=== PATIENT | male | born 1960 | race Two or more races ===

== ENCOUNTER 2022-08-30 05:15 | Inpatient (IN) | payer MEDICAID ==
[2022-08-25 14:02] LABS: BASOPHILS # (AUTO) 0.1 X10'3 (0-0.2); BASOPHILS % (AUTO) 0.7 % (0-1); EOSINOPHILS # (AUTO) 0.3 X10'3 (0-0.9); EOSINOPHILS % (AUTO) 3.7 % (0-6); LYMPHOCYTES # (AUTO) 2.7 X10'3 (1.1-4.8); MEAN CORPUSCULAR HEMOGLOBIN 30.2 PG (27.0-31.0); MEAN CORPUSCULAR VOLUME 91.4 FL (78-98); MEAN PLATELET VOLUME 7.3 FL (7.4-10.4); MONOCYTES # (AUTO) 1.1 X10'3 (0-0.9); MONOCYTES % (AUTO) 14.5 % (2-12); NEUTROPHILS # (AUTO) 3.3 X10'3 (1.8-7.7); NEUTROPHILS % (AUTO) 45.1 % (42-75); PRE OP HEMATOCRIT 49.7 % (42.0-52.0); PRE OP HEMOGLOBIN 16.4 g/dL (14.0-17.9); PRE OP PLATELET COUNT 283 X10'3 (140-440); RED BLOOD COUNT 5.44 X10'6 (4.70-6.10); RED CELL DISTRIBUTION WIDTH 14.6 % (11.5-14.5)
[2022-08-25 14:23] LABS: ALBUMIN 3.8 G/DL (3.4-5.0); ALKALINE PHOSPHATASE 86 IU/L (46-116); BLOOD UREA NITROGEN 13 MG/DL (7-18); BUN/CREATININE RATIO 16.3 (5.4-32.0); CALCIUM 8.6 MG/DL (8.5-10.1); CHLORIDE 105 MMOL/L (99-107); PRE OP ALT 26 U/L (30-65); PRE OP ANION GAP 7 (8-16); PRE OP AST 26 U/L (10-37); PRE OP BILIRUB, TOTAL 0.7 MG/DL (0.0-1.0); PRE OP GLUCOSE 99 MG/DL (70-104); PRE OP POTASSIUM 4.1 MMOL/L (3.4-5.1); PRE OP SODIUM 141 MMOL/L (135-145); TOTAL CARBON DIOXIDE 29.3 MMOL/L (24-32); TOTAL PROTEIN 7.8 G/DL (6.4-8.2); eGFR > 90 ML/MIN
[2022-08-30] VITALS (25 sets, daily range): BP systolic 118–143; BP diastolic 72–95
[~2022-08-30] VITALS: Ht 165.1 cm; Wt 91.6 kg
[~2022-08-30 05:15] MED LIST: ALLO100T25 PO; FERR-39 PO; LOSA50TA3 PO; ROSU20TA2 PO; ringers solution, lacted 1,000 ML IV SCH
[2022-08-30] MEDS ORDERED: famotidine 20mg tablet PO ONE (05:30)
[2022-08-30] MEDS ORDERED: ceFAZolin inj. 2,000 MG in dextrose 5%-water 100 ML IV ONE (05:30)
[2022-08-30] MEDS ORDERED: BUPIVAcaine 0.5% inj/PF 30 ML ONE (06:48)
[2022-08-30] MEDS ORDERED: LIDOcaine 1% 30ml preserv. free vial ONE (06:48)
[2022-08-30] MEDS ORDERED: ondansetron/PF 4mg/2ml inj IV PRN ×2 (07:15→12:45)
[2022-08-30] MEDS ORDERED: hydrALAZINE 20mg/ml inj. IV PRN (07:15)
[2022-08-30] MEDS ORDERED: fentaNYL/PF 50MCG/1 ML 2ML syringe IV PRN ×2 (07:15)
[2022-08-30] MEDS ORDERED: ringers solution, lacted 1,000 ML IV SCH (07:15)
[2022-08-30] MEDS ORDERED: labetalol 20mg/4ml (5mg/ml) syringe IV PRN (07:15)
[2022-08-30] MEDS ORDERED: morphine 2 MG/ML inj. syringe IV PRN (07:15)
[2022-08-30] MEDS ORDERED: morphine 4 MG/ML inj SYRINge IV PRN (07:15)
[2022-08-30] MEDS ORDERED: midazolam 1 mg/ML 2ml injection ONE (07:16)
[2022-08-30] MEDS ORDERED: fentaNYL/PF 50MCG/1 ML 2ML syringe ONE ×2 (07:16→10:11)
[2022-08-30] MEDS ORDERED: LIDOcaine 1%/PF 5ML 10 MG/ML VIAL ONE (07:18)
[2022-08-30] MEDS ORDERED: propofol inj 20 ML IV ONE (07:18)
[2022-08-30] MEDS ORDERED: ondansetron/PF 4mg/2ml inj ONE (07:19)
[2022-08-30] MEDS ORDERED: rocuronium 10mg/ml inj IV ONE ×3 (07:19→09:44)
[2022-08-30] MEDS ORDERED: dexamethasone sod phosphate 4mg/ml inj. ONE (07:19)
[2022-08-30] MEDS ORDERED: neostigmine methylsulfate 1 MG/ML 10ml vial ONE (07:19)
[2022-08-30] MEDS ORDERED: glycopyrrolate 0.2mg/ml inj ONE (07:19)
[2022-08-30] MEDS ORDERED: sevoflurane 250ml liquid IH ONE (07:33)
[2022-08-30] MEDS ORDERED: BUPIVAcaine 0.5% inj/PF 30 ml vial IJ ONE (08:33)
[2022-08-30] MEDS ORDERED: sugammadex 200mg/2ml injection IV ONE (10:33)
[2022-08-30] MEDS ORDERED: INDOCYANINE GREEN 25 MG/10 ML VIAL IV ONE (10:56)
[2022-08-30] MEDS ORDERED: albumin (Human) 5% 250ml 250 ML IV ONE (11:25)
[2022-08-30] MEDS ORDERED: morphine 10mg/ml inj. ONE (11:35)
--- NOTE | 2022-08-30 12:43 | NUR ---
Received from OR via HOSPITAL BED, accompanied by Anesthesiologist DR SCHMIDT and report given by Anesthesiolgist. PT IS GROGGY BUT RESPONDS TO VERBAL STIMULI. PT PLACED ON BEDSIDE MONITOR, VSS. PT IS ST WITH RATE IN LOW 100'S. PT RECEIVING 8L O2 TO MASK AND TOLERATING WELL WITH O2 SAT >96%. WILL TITRATE DOWN PT TOLERATES. PT HAS 20G PIV TO LEFT HAND WITH LR INFUSING ORDERED. PT HAS 4 LAP SITES ACROSS UPPER AND WITH DERMABOND THAT ARE ALL CDI. PT IS RESTING WITH NO S/S OF DISTRESS/DISCOMFORT NOTED AT THIS TIME. WILL CONTINUE TO ASSESS.
[2022-08-30] MEDS ORDERED: morphine/NS PCA 1mg/ml 50ml 50 ML IV SCH (12:45)
[2022-08-30] MEDS ORDERED: naloxone 0.4 mg/ml inj IV PRN (12:45)
--- NOTE | 2022-08-30 14:20 | NUR ---
PT MOVED OVER TO NEW BED D/T HEAD OF BED NOT STAYING UP ON PREVIOUS BED. ENGINEERING CALLED AND SAID THEY WOULD COME GET THE BED FOR REPAIR.
[2022-08-30] MEDS: morphine/NS PCA 1mg/ml 50ml 50 ML IV SCH ×5 (14:38→23:00)
--- NOTE | 2022-08-30 15:09 | NUR ---
REPORT GIVEN TO RAMÓN MUELLER AND ALL QUESTIONS ANSWERED. PATIENT TRANSFERRED TO SURGICAL FLOOR. LABELED BELONGINGS PRESENT AND DELIVERED TO ROOM. RN PRESENT ALL CRITERIA FOR TRANSFER BACK TO THE FLOOR HAS BEEN ACHIEVED. VSS. PAIN AT A TOLERABLE LEVEL. BED LOW, CALL LIGHT PRESENT AND 2 RAILS DOWN. RN AWARE THAT PATIENT HAS ARRIVED. TO ACCEPT CARE OF PATIENT.
[2022-08-30] MEDS: ceFAZolin inj. 1,000 MG in dextrose 5%-water 50ml 50 ML IV SCH (18:06)
[2022-08-30] MEDS: albuterol 2.5 MG/3 ML nebule NEB SCH (19:00)
[2022-08-30] MEDS: docusate sod 100mg capsule PO SCH (21:01)
[2022-08-30] MEDS: sennosides/docusate sodium tablet PO SCH (21:02)
[2022-08-30] MEDS: normal saline 1000ml 1,000 ML IV SCH (21:04)
--- NOTE | 2022-08-30 22:08 | NUR ---
Student Medication Administration: For this medication-pass time frame, all medication were reviewed, dispensed, administered and documented per hospital policy by SEKOU [facility].
--- NOTE | 2022-08-30 23:32 | NUR ---
Student documentation: I have reviewed interventions, assessments performed and documented by Roderick SAPP [facility].
[2022-08-31] MEDS: morphine/NS PCA 1mg/ml 50ml 50 ML IV SCH ×7 (00:36→13:00)
[2022-08-31] MEDS: ceFAZolin inj. 1,000 MG in dextrose 5%-water 50ml 50 ML IV SCH ×2 (01:08→09:06)
[2022-08-31 02:00] VITALS: BP 121/67
--- NOTE | 2022-08-31 04:00 | NUR ---
ATTEMPTED TO AMBULATE PT AND PATIENT OXYGEN SATURATION WENT DOWN INTO THE HIGH 70'S GOT HIM BACK IN BED AND HAD TO BUMP HIS O2 UP TO 6L TO GET HIM AT 92-93. WENT BACK IN AND RECHECKED HIM AND HIS O2 WAS AT 97% TITRATED HIM DOWN TO 4L AND HE WAS AT 94%. PATIENT DOES NOT NORMALLY REQUIRE O2 AT HOME. PATIENT VITALS STABLE. PAIN IS CONTROLLED AT 5/10
--- NOTE | 2022-08-31 05:13 | NUR ---
PATIENT'S CADD HAD TO HAVE NEW TUBING PLACED AND PRIMED. CHARGE JEANNETTE PRESENT AT BEDSIDE AND CHANGED OUT CONTAMINATED TUBING. PATIENT'S TOTAL OF MORPHINE WILL BE OFF DUE TO THE WASTED PORTION IN THE TUBING AND THE PRIMING OF THE LINE.
[2022-08-31 06:27] LABS: BASOPHILS % (AUTO) 0.2 % (0-1); EOSINOPHILS % (AUTO) 0 % (0-6); HEMATOCRIT 39.9 % (42.0-52.0); HEMOGLOBIN 13.3 g/dl (14.0-17.9); LYMPHOCYTES # (AUTO) 1.7 X10'3 (1.1-4.8); LYMPHOCYTES % (AUTO) 16.3 % (21-51); MEAN CORPUSCULAR HEMOGLOBIN 30.6 PG (27.0-31.0); MEAN CORPUSCULAR HGB CONC 33.4 g/dL (33.0-36.5); MEAN CORPUSCULAR VOLUME 91.6 FL (78-98); MEAN PLATELET VOLUME 7.5 FL (7.4-10.4); MONOCYTES # (AUTO) 1.3 X10'3 (0-0.9); MONOCYTES % (AUTO) 12.2 % (2-12); NEUTROPHILS # (AUTO) 7.4 X10'3 (1.8-7.7); NEUTROPHILS % (AUTO) 71.3 % (42-75); PLATELET COUNT 264 X10'3 (140-440); RED BLOOD COUNT 4.35 X10'6 (4.70-6.10); RED CELL DISTRIBUTION WIDTH 14.3 % (11.5-14.5); WHITE BLOOD COUNT 10.3 X10'3 (4.5-11.0)
--- NOTE | 2022-08-31 06:34 | NUR ---
Problems reprioritized. Patient report given, questions answered & plan of care reviewed with AMI FIELDS.
[2022-08-31 06:49] LABS: ALBUMIN 3.4 G/DL (3.4-5.0); ANION GAP 11 (8-16); BLOOD UREA NITROGEN 13 MG/DL (7-18); BUN/CREATININE RATIO 13.7 (5.4-32.0); CALCIUM 8.1 MG/DL (8.5-10.1); CHLORIDE 105 MMOL/L (99-107); CREATININE 0.95 MG/DL (0.60-1.10); GLUCOSE 153 MG/DL (70-104); POTASSIUM 4.2 MMOL/L (3.5-5.1); SODIUM 142 MMOL/L (135-145); TOTAL CARBON DIOXIDE 26.1 MMOL/L (24-32); eGFR 80 ML/MIN
--- NOTE | 2022-08-31 07:55 | NUR ---
received report from night nurse. Assumed care of patient. All safety measures in place and call light in reach. Will continue to monitor.
[2022-08-31] MEDS: sennosides/docusate sodium tablet PO SCH ×2 (08:57→20:00)
[2022-08-31] MEDS: losartan 50mg tablet PO SCH (08:58)
[2022-08-31] MEDS: docusate sod 100mg capsule PO SCH ×2 (08:58→20:00)
[2022-08-31] MEDS: enoxaparin 40mg/0.4ml syringe SQ SCH (09:00)
[2022-08-31] MEDS: albuterol 2.5 MG/3 ML nebule NEB SCH ×4 (09:09→19:42)
[2022-08-31] MEDS: normal saline 1000ml 1,000 ML IV SCH (09:11)
[2022-08-31 09:45] VITALS: BP 130/76
[2022-08-31 11:00] VITALS: BP_SYST 141; BP_SYST 145; BP_SYST 147; BP_DIAS 78; BP_DIAS 83; BP_DIAS 85
[2022-08-31] MEDS ORDERED: PCA WASTE DOCUMENTATION 1 MG ML MC SCH (11:00)
--- NOTE | 2022-08-31 11:09 | NUR ---
Russell Scott 350B - Pt tachy 110s at rest increased 120-130 w/exertion. 02 drop 88 w/exertion current BP 143/81 -Mala S. [employer] [id number]
[2022-08-31] MEDS ORDERED: LORazepam 2 mg/ml vial IV ONE (13:20)
[2022-08-31] MEDS ORDERED: acetaminophen 325mg/10.15ml oral unit dose solution PO PRN (13:40)
--- NOTE | 2022-08-31 17:54 | NUR ---
PAGER ID: [phone] MESSAGE: Americo Goodson#[phone]- Dr. Michael would like to a consult for 350B, Please. Thank you. Alanis Michael
[2022-08-31 18:00] VITALS: BP 144/87
--- NOTE | 2022-08-31 18:53 | NUR ---
Physical Assessment by Yuly SALAZAR Reviewed. Addendum: 08/31/22 at 1854 by Alanis Joy RN Amended: Links added.
--- NOTE | 2022-08-31 18:54 | NUR ---
Problems reprioritized. Patient report given, questions answered & plan of care reviewed with Gabriella MUELLER.
[2022-08-31] MEDS ORDERED: metoprolol tartrate 1mg/ml inj IV PRN (20:25)
[2022-08-31 22:00] VITALS: BP_SYST 135; BP_SYST 138; BP_DIAS 78
[2022-08-31] MEDS ORDERED: potassium Cl 40MEQ/1/2NS 520ml 520 ML IV PRN (22:25)
[2022-08-31] MEDS ORDERED: magnesium 4gm in 100ml NS 100 ML IV PRN (22:25)
[2022-08-31] MEDS ORDERED: potassium Cl 20 mEq SR tablet PO PRN ×2 (22:25)
[2022-08-31] MEDS ORDERED: magnesium Cl slow-release 64mg tablet PO PRN (22:25)
[2022-08-31] MEDS ORDERED: cloNIDine 0.2 MG/24 HR patch (7 day patch) TD ONE (22:30)
[2022-08-31] MEDS ORDERED: ipratropium/albuterol 3ml nebule NEB SCH (23:00)
[2022-08-31] MEDS: ringers solution, lacted 1,000 ML IV SCH (23:00)
--- NOTE | 2022-09-01 02:44 | NUR ---
Pt. is awake alert oriented speaks Mozambican understands some Yi. No c/o pain or distress. States wants to go home. Advised to remain in bed until seen by the DrMagnolia in the am. NGT to LIS large amt dark reddish brown drainage. Pt. able to use bedside urinal with minimal assistance yellow clear urine. IV infusing. Will continue to monitor.
[2022-09-01] MEDS: ipratropium/albuterol 3ml nebule NEB SCH ×2 (02:45→08:23)
[2022-09-01] MEDS: ringers solution, lacted 1,000 ML IV SCH ×2 (03:36→10:57)
[2022-09-01 07:00] VITALS: BP 148/78
--- NOTE | 2022-09-01 07:15 | NUR ---
Message: [id number] Ashleigh Goodson: patient complaining of pain in back of throat from NG. can I get some chloraseptic spray? he's wanting to pull the NG and leave. jake, angelique [id number] Transaction number: [id number]
[2022-09-01] MEDS ORDERED: K and/or MAG REPLACEMENT MC SCH (08:00)
[2022-09-01] MEDS: sennosides/docusate sodium tablet PO SCH (08:07)
[2022-09-01] MEDS: docusate sod 100mg capsule PO SCH (08:07)
[2022-09-01] MEDS: losartan 50mg tablet PO SCH (08:07)
[2022-09-01] MEDS: enoxaparin 40mg/0.4ml syringe SQ SCH (08:08)
[2022-09-01] MEDS ORDERED: LORazepam 2 mg/ml vial IV PRN (10:30)
[2022-09-01] MEDS: normal saline 1000ml 1,000 ML IV SCH (10:37)
[2022-09-01 11:09] VITALS: BP 140/84
[2022-09-01] MEDS ORDERED: metoprolol tartrate 50mg tablet PO SCH (12:10)
--- NOTE | 2022-09-01 12:15 | NUR ---
called lab multiple times this AM regarding missing labs. finally pending now.
[2022-09-01 12:25] LABS: BASOPHILS % (AUTO) 0.2 % (0-1); EOSINOPHILS % (AUTO) 0 % (0-6); HEMATOCRIT 39.8 % (42.0-52.0); HEMOGLOBIN 12.9 g/dl (14.0-17.9); LYMPHOCYTES # (AUTO) 1.2 X10'3 (1.1-4.8); LYMPHOCYTES % (AUTO) 7.8 % (21-51); MEAN CORPUSCULAR HEMOGLOBIN 29.7 PG (27.0-31.0); MEAN CORPUSCULAR HGB CONC 32.3 g/dL (33.0-36.5); MEAN CORPUSCULAR VOLUME 91.8 FL (78-98); MEAN PLATELET VOLUME 7.8 FL (7.4-10.4); MONOCYTES # (AUTO) 1.4 X10'3 (0-0.9); MONOCYTES % (AUTO) 9.5 % (2-12); NEUTROPHILS # (AUTO) 12.5 X10'3 (1.8-7.7); NEUTROPHILS % (AUTO) 82.5 % (42-75); PLATELET COUNT 238 X10'3 (140-440); RED BLOOD COUNT 4.34 X10'6 (4.70-6.10); RED CELL DISTRIBUTION WIDTH 14.2 % (11.5-14.5); WHITE BLOOD COUNT 15.2 X10'3 (4.5-11.0)
[2022-09-01 12:28] LABS: ALANINE AMINOTRANSFERASE 32 U/L (12-78); ALBUMIN 3.3 G/DL (3.4-5.0); ALBUMIN/GLOBULIN RATIO 0.9 (1.1-1.5); ALKALINE PHOSPHATASE 65 IU/L (46-116); ANION GAP 3 (8-16); ASPARTATE AMINO TRANSFERASE 49 U/L (10-37); BILIRUBIN,TOTAL 0.9 MG/DL (0.1-1.0); BLOOD UREA NITROGEN 8 MG/DL (7-18); CALCIUM 8.6 MG/DL (8.5-10.1); CHLORIDE 104 MMOL/L (99-107); GLUCOSE 137 MG/DL (70-104); MAGNESIUM 2.2 MG/DL (1.5-2.4); PHOSPHORUS 2.1 MG/DL (2.3-4.5); POTASSIUM 3.9 MMOL/L (3.5-5.1); SODIUM 139 MMOL/L (135-145); TOTAL CARBON DIOXIDE 31.8 MMOL/L (24-32); TOTAL PROTEIN 6.8 G/DL (6.4-8.2); eGFR > 90 ML/MIN
--- NOTE | 2022-09-01 12:30 | NUR ---
Dr. [place] at bedside. Explaining the dangers and consequences of leaving AMA.
--- NOTE | 2022-09-01 12:40 | NUR ---
T/C to Dr. Michael explained patient is insisting to leave AMA. some instructions given to relay to patient.
[2022-09-01 12:46] VITALS: BP_SYST 140
--- NOTE | 2022-09-01 13:00 | NUR ---
Patient insisting on leaving AMA. IV and monitor and storage bin tender removed. Post-op instructions and follow up directions given and reviewed with patient. Family at bedside all verbalized understanding of the complications that can occur with leaving AMA.
--- NOTE | 2022-09-01 14:10 | NUR ---
Message: [phone] Ashleigh Goodson: MECHELLE... patient left AMA. Dr. Alec fernandez. thanksangelique [id number] Transaction number: [id number]
== END 2022-09-01 13:05 | disposition left against medical advice (07) | DRG 220 ==
LOC: PAS IN 05:15 → SUR 3N 15:14
PROVIDERS: ADMIT Surgery; ATTEND Surgery
PROC: 0BUT4JZ Supplement Diaphragm with Synthetic Substitute, Percutaneous Endoscopic Approach (ICD-10-PCS; principal; 2022-08-31)
PROC: 8E0W4CZ Robotic Assisted Procedure of Trunk Region, Percutaneous Endoscopic Approach (ICD-10-PCS; 2022-08-31)
PROC: 0DV44ZZ Restriction of Esophagogastric Junction, Percutaneous Endoscopic Approach (ICD-10-PCS; 2022-08-31)
DX: K44.9 Diaphragmatic hernia without obstruction or gangrene (principal); E66.9 Obesity, unspecified; E78.5 Hyperlipidemia, unspecified; I10 Essential (primary) hypertension; Z53.29 Procedure and treatment not carried out because of patient's decision for other reasons; M10.9 Gout, unspecified; R00.0 Tachycardia, unspecified; R14.0 Abdominal distension (gaseous); Z68.33 Body mass index [BMI] 33.0-33.9, adult; Z79.899 Other long term (current) drug therapy
CPT/HCPCS: 36415; 71045; 74018; 80048; 80053; 82948; 83735; 84100; 85025; 87081; 93005; 94640; 94760; A4615; A4618; C1781; G0378; J0690; J1100; J1650; J2060; J2250; J2270; J2274; J2405; J2704; J2710; J3010; J3490; J7030; J7060; J7120; P9045; S0020